=== PATIENT | male | born 1985 | race Two or more races ===

== ENCOUNTER 2023-07-13 11:18 | Emergency (ER) | payer OTHER ==
[~2023-07-13] VITALS: Ht 167.6 cm; Wt 74.1 kg
[2023-07-13 13:29] VITALS: BP 143/72; PULSE 83; RESP 18; TEMP 98.6; O2SAT 94
[2023-07-13] MEDS ORDERED: TETANUS-DIPTH-ACEL PERTUSSIS 0.5ML SYR Tdap IM ONE (13:30)
== END 2023-07-13 14:07 | disposition home or self-care (01) ==
LOC: ER 11:18
DX: S61.231A Puncture wound without foreign body of left index finger without damage to nail, initial encounter (principal); X58.XXXA Exposure to other specified factors, initial encounter; Y93.89 Activity, other specified; Y92.89 Other specified places as the place of occurrence of the external cause; Y99.8 Other external cause status
CPT/HCPCS: 73140; 90471; 90715